=== PATIENT | male | born 1960 | race Caucasian/White ===

== ENCOUNTER 2018-12-05 23:33 | Inpatient (IN) | payer BC ==
[2018-12-06] MEDS ORDERED: HYDROmorphone 0.5 MG/0.5 ML SYRINGE ONE ×3 (00:03→01:56)
[2018-12-06] MEDS ORDERED: Ketorolac Tromethamine 30 MG/ML VIAL ONE (00:03)
[2018-12-06 00:29] LABS: #Basophils 0.2 thou/uL (0.0-0.2); #Lymphocytes 0.5 thou/uL (1.20-3.40); #Monocytes 0.7 thou/uL (0.11-0.59); #Neutrophils 12.1 thou/uL (1.40-6.50); %Basophils 1.3 % (0.0-1.0); %Eosinophils 0.2 % (0.0-10.0); %Lymphocytes 3.9 % (21.0-51.0); %Monocytes 5.4 % (0.0-10.0); %Neutrophils 89.2 % (42.0-75.0); Hemoglobin 14.7 g/dL (14.0-18.0); Mean Corpuscular HGB CONC 34.4 g/dL (32.0-36.0); Mean Corpuscular Hemoglobin 31.3 pg (27.0-31.0); Mean Corpuscular Volume 91.1 fL (78.0-98.0); Mean Platelet Volume 7.5 fL (7.4-10.4); Platelet Count 193 thou/uL (130-400); Red Blood Cell (RBC) Count 4.68 mill/uL (4.70-6.10); White Blood Cell (WBC) Count 13.6 thou/uL (4.8-10.8)
[2018-12-06 00:51] LABS: ALT (SGPT) 769 U/L (8-55); AST (SGOT) 390 U/L (5-34); Albumin 4.1 g/dL (3.5-5.0); Alkaline Phosphatase 213 U/L (40-150); Anion Gap 17 mmol/L (10-20); BUN (Urea Nitrogen) 17 mg/dL (8.4-25.7); Bilirubin, Total 5.8 mg/dL (0.2-1.2); Calc. Creatinine Clearance 0 mL/min (70-130); Calcium 8.8 mg/dL (7.8-10.44); Carbon Dioxide 23 mmol/L (22-29); Chloride 103 mmol/L (98-107); Estimated GFR-MDRD 81; Globulin 2.7 g/dL (2.4-3.5); Glucose 95 mg/dL (70-105); Lipase 27 U/L (8-78); Magnesium 1.8 mg/dL (1.6-2.6); Potassium 3.6 mmol/L (3.5-5.1); Protein, Total 6.8 g/dL (6.0-8.3); Sodium 139 mmol/L (136-145)
[2018-12-06] MEDS ORDERED: Acetaminophen 1,000 MG in Premix Bag 1 BAG IVPB SCH (02:30)
[2018-12-06] MEDS ORDERED: Levalbuterol HCl 1.25 MG/0.5 ML NEB NEB SCH (03:00)
[2018-12-06] MEDS ORDERED: Sodium Chloride For Inhalation 0.9% 3 ML NEB ONE (03:05)
[2018-12-06] MEDS ORDERED: Piperacillin/Tazobactam 3.375 GM VIAL ONE ×2 (03:20→10:27)
[2018-12-06] MEDS ORDERED: Acetaminophen 325 MG TAB PO PRN (03:34)
[2018-12-06] MEDS ORDERED: Ondansetron PF 4 MG/2 ML Vial IVP PRN (03:34)
[2018-12-06] MEDS ORDERED: Fentanyl 100 MCG/2 ML VIAL SLOW IVP PRN (03:34)
[2018-12-06 03:38] LABS: Actual Bicarbonate (HCO3a) 23.6 mEq/L (22-28); Analyzer IN Cardio ER; Base Excess (BEa) -1.9 mEq/L (-2.0 to +3.0); CO2 Tension 42.8 mmHg (35.0-45.0); Calcium, Ionized 1.09 mmol/L (1.12-1.30); Carboxyhemoglobin (COHb) 1.1 gm% (0.0-3.0); Hemoglobin (Hb) 14.3 g/dL (14.0-18.0); O2 Tension (PaO2) 68.2 mmHg (> 80.0); Potassium - ABG Lab 3.34 mmol/L (3.70-5.30); pH, Arterial 7.36 (7.35-7.45)
[2018-12-06 03:39] LABS: Puncture Site LRA
[2018-12-06] MEDS: Sodium Chloride 0.9% 1,000 ML IV SCH (03:43)
[2018-12-06 04:13] LABS: Bilirubin Negative (Negative); Blood, Urine Negative (Negative); Clarity Clear (Clear); Glucose, Urine (Dipstick) Normal (Negative); Leukocyte Negative Leu/uL (Negative); Nitrite Negative (Negative); Protein, Urine (Dipstick) Negative (Neg-Trace); Urobilinogen Normal mg/dL (Less than 2)
[2018-12-06] MEDS ORDERED: Ondansetron PF 4 MG/2 ML Vial ONE ×2 (04:14→09:06)
[2018-12-06] MEDS ORDERED: Morphine 4 MG/ML VIAL ONE ×2 (04:15→06:33)
--- NOTE | 2018-12-06 04:32 | HP ---
REASON FOR ADMISSION: Choledocholithiasis, acute hypoxic respiratory failure secondary to splinting from abdominal pain. HISTORY OF PRESENTING ILLNESS: The patient gives history of developing abdominal pain in the epigastric area while he was watching [employer] game. The pain was 8/ 10 in intensity. There was no radiation of this pain. He has felt very nauseous, but has not thrown up. No complaints of fever, cough, or expectoration. No history of lung issues including asthma, allergies, or COPD. His mentions that he snores, but she has not noticed any apneic spells. PAST MEDICAL AND SURGICAL HISTORY: History of Crohn's from the age of 16 years. Last colonoscopy was 2 years back. He has had colon surgery, but is unable to say exactly how much of his colon is taken out. Prior history of cholecystectomy, hypertension, tonsillectomy, and hernia repair. CURRENT MEDICATIONS: Takes, 1. Humira infusions weekly. 2. Irbesartan 300 mg p.o. daily. 3. Norvasc 2.5 mg daily. 4. Diphenoxylate with atropine twice daily. ALLERGIES: NO KNOWN DRUG ALLERGIES. PERSONAL HISTORY: Does not abuse alcohol or drugs. No history of smoking. Lives with his . FAMILY HISTORY: Both parents are . Mother was 74. She had acute myeloid leukemia. Father at the same age with history of skin cancer and dementia. CODE STATUS: Full. Power of commercial litigation attorney is his . REVIEW OF SYSTEMS: CONSTITUTIONAL: Negative for weight loss or gain, ability to conduct usual activities. SKIN: Negative for rash, itching. EYES: Negative for double vision, pain. ENT/MOUTH: Negative for nose bleeding, neck stiffness, pain, tenderness. CARDIOVASCULAR: Negative for palpitations, dyspnea on exertion, orthopnea. RESPIRATORY: Negative for shortness of breath, wheezing, cough, hemoptysis, fever or night sweats. GASTROINTESTINAL: Negative for poor appetite, abdominal pain, heartburn, nausea , vomiting, constipation, or diarrhea. GENITOURINARY: Negative for urgency, frequency, dysuria, nocturia. MUSCULOSKELETAL: Negative for pain, swelling. NEUROLOGIC/PSYCHIATRIC: Negative for anxiety, depression. ALLERGY/IMMUNOLOGIC: Negative for skin rash, bleeding tendency. PHYSICAL EXAMINATION: GENERAL: The patient is a 58-year-old male who is currently in moderate abdominal pain. VITAL SIGNS: Blood pressure 144/90, pulse 110 per minute, respiratory rate 22 per minute, temperature 98.2 degrees Fahrenheit, saturating 84% on room air and 92% on 35% Ventimask. NECK: Supple. No elevated JVD. HEENT: Eyes; extraocular muscles intact. Pupils are reacting to light. Oral cavity, mucous membranes are dry. No exudates or congestion. CARDIOVASCULAR SYSTEM: S1 and S2 heard, regular rhythm. RESPIRATORY: Air entry 1+ bilateral. The patient is taking shallow breaths. No rales or rhonchi. ABDOMEN: Soft. There is tenderness in the epigastric area. The patient has voluntary guarding, and no obvious rigidity felt. Bowel sounds are heard. EXTREMITIES: No peripheral edema or calf tenderness. VASCULAR SYSTEM: Peripheral pulses 2+ bilateral. No ischemic ulcerations or gangrene. CENTRAL NERVOUS SYSTEM: No gross focal deficits noted. The patient is alert, awake, and oriented well. PSYCHIATRIC SYSTEM: The patient is a bit anxious, otherwise no hallucinations or delusions. LABORATORY DATA: CT angio chest done shows no evidence of PE. CT of the abdomen and pelvis shows distal CBD stone. Official reports are pending at present. Total bilirubin 5.8, AST 390, ALT 769, alkaline phosphatase 213. Troponin I less than 0.01. Albumin is 4.1, lipase is 27, BUN 17, creatinine 0.9, bicarb is 23. Lactic acid 1.6. Blood gas done shows a pH of 7.36, pCO2 of 42, pO2 of 68. White count of 13, H and H 14 and 42, platelet count is 193 with 89% neutrophils, MCV is 91. D-dimer was 0.65. CLINICAL IMPRESSION AND PLAN: The patient will be admitted to IMCU for acute choledocholithiasis with elevated liver enzymes and severe abdominal pain. He also has moderate dehydration. The patient has acute respiratory failure with hypoxia due to splinting from abdominal pain. We will place him on fentanyl 50 mcg IV q.6 hourly p.r.n. Close monitoring of airway will be maintained in IMCU. He will be on normal saline at 100 mL/h. Empiric Zosyn will be placed for now. We will obtain blood cultures. Dr. Galvan has been consulted from ER and the patient will likely go for ERCP this morning. We will keep him n.p.o. We will hold off on all his antihypertensive medications for now. I have given complete updates to patient and his at bedside. Code status is full. Job ID: [id number] MTDD
[2018-12-06] MEDS ORDERED: Fentanyl 100 MCG/2 ML VIAL ONE ×3 (04:33→10:40)
[2018-12-06] MEDS ORDERED: Morphine 2 MG/ML SYRINGE SLOW IVP SCH (06:45)
[2018-12-06] MEDS: Albuterol Sulfate 1.25 MG/3 ML NEB NEB SCH ×3 (07:13→22:13)
--- NOTE | 2018-12-06 08:19 | CT ---
PRELIMINARY REPORT/[facility]/EMERGENCY AFTER HOURS PROCEDURE: EXAM: CT Angiography Chest With Contrast EXAM DATE/TIME: 12/06/2018 1:29 AM CLINICAL HISTORY: 58 years old, male; Shortness of breath; Patient HX: 58 y/o m, with h/o chron's dz, presents to ED C/ O sudden onset of abd pain that began at approx 2200. PT was attending a football game when his pain began. He describes associated dyspnea secondary to pain, with pain worsening on inspiration TECHNIQUE: Imaging protocol: Computed tomographic angiography of the chest with intravenous contrast. 3D renderi ng: MIP reconstructed images were created and reviewed. COMPARISON: No relevant prior studies available. FINDINGS: Pulmonary arteries: No pulmonary emboli. Aorta: Unremarkable. No aortic aneurysm. No aortic dissection. Lungs: Bilateral lower lobe atelectasis and possible small pneumonias. Pleural space: Unremarkable. No pneumothorax. No pleural effusion. Heart: Unremarkable. No cardiomegaly. No pericardial effusion. Liver: 2.1 cm simple cyst within the left hepatic lobe. Lymph nodes: Unremarkable. No enlarged lymph nodes. Bones/joints: Unremarkable. No acute fracture. Soft tissues: Unremarkable. IMPRESSION: 1. No pulmonary emboli. 2. Bilateral lower lobe atelectasis and possible small pneumonias. Thank you for allowing us to participate in the care of your patient. Dictated and Authenticated by: Eddi Riggs MD 12/06/2018 2:23 AM Central Time ([place] & [place]) FINAL REPORT CT ARTERIOGRAM CHEST WITH IV CONTRAST AND 3D IMAGING PERFORMED ON AN EMERGENCY BASIS: Date: 12/06/18 Time: 0131 hours HISTORY: Dyspnea. Chest pain. FINDINGS: Findings agree with the preliminary report by Rupinder. No CT evidence of pulmonary embolus. Bilateral lo wer lobe infiltrates. Possible pneumonia. POS: TPC
--- NOTE | 2018-12-06 08:22 | CT ---
PRELIMINARY REPORT/[facility]/EMERGENCY AFTER HOURS PROCEDURE: EXAM: CT Abdomen and Pelvis With Contrast EXAM DATE/TIME: 12/06/2018 1:29 AM CLINICAL HISTORY: 58 years old, male; Abdominal pain; Patient HX: 58 y/o m, with h/o chron's dz, presents to ED C/O petros den onset of abd pain that began at approx 2200. PT was attending a football game when his pain began . He describes associated dyspnea secondary to pain, with pain worsening on inspiration. TECHNIQUE: Imaging protocol: Computed tomography of the abdomen and pelvis with intravenous contrast. COMPARISON: No relevant prior studies available. FINDINGS: Lungs: Bibasilar atelectasis and possible small lower lobe pneumonias. Liver: 18 mm simple cyst within the left hepatic lobe. Gallbladder and bile ducts: Gallbladder is surgically absent. Mild common bile duct dilation (12 mm), with 6 mm calculus in the distal common bile duct, compatible with choledocholithiasis. Pancreas: Normal. Spleen: Normal. Adrenals: Normal. Kidneys and ureters: Simple right renal cyst. Stomach and bowel: Surgical changes of prior partial right colectomy, without evidence of acute compl ications. Appendix: No evidence of appendicitis. Intraperitoneal space: Normal. No free air. No significant fluid collection. Vasculature: Phleboliths within the pelvis. Lymph nodes: Normal. No enlarged lymph nodes. Bladder: Unremarkable as visualized. Reproductive: Unremarkable as visualized. Bones/joints: No acute abnormality. Soft tissues: Normal. IMPRESSION: 1. Bibasilar atelectasis and possible small lower lobe pneumonias. Recommend followup. 2. Mild common bile duct dilation (12 mm), with 6 mm calculus in the distal common bile duct, compati ble with choledocholithiasis. Degenerative changes of the hips and sacroiliac joints. Thank you for allowing us to participate in the care of your patient. Dictated and Authenticated by: Eddi Riggs MD 12/06/2018 2:19 AM Central Time ([place] & [place]) FINAL REPORT CT ABDOMEN AND PELVIS WITH IV CONTRAST PERFORMED ON AN EMERGENCY BASIS: Date: 12/06/18 Time: 0132 hours HISTORY: Abdominal pain. Crohn's disease. FINDINGS/IMPRESSION: Findings agree with the preliminary report by Rupinder. Bibasilar atelectasis/pneumonitis is again demons trated, better detailed on CTA chest exam. Choledocholithiasis and biliary obstruction are confirmed. POS: TPC
--- NOTE | 2018-12-06 08:26 | RAD ---
ACUTE ABDOMINAL SERIES: INDICATION: Chest pain. FINDINGS: Lungs are hypoinflated with bibasilar densities, accentuation of the cardiac silhouette, and prominen ce of the pulmonary vasculature. No free air is seen beneath the hemidiaphragms. There are scattere d loops of dilated air-filled small bowel as well as differential air fluid levels. Scattered metall ic clips of the abdomen are seen. IMPRESSION: 1. Findings indicate mechanical obstruction on the basis of radiographic imaging. Correlate with CT exam for further evaluation. 2. Hypoinflated lungs with associated basilar densities, accentuation of the cardiac silhouette, and prominence of the pulmonary vasculature. POS: C
[2018-12-06] MEDS ORDERED: Iothalamate Meglumine 60% 50 ML VIAL FS ONE (08:56)
[2018-12-06] MEDS: Fentanyl 100 MCG/2 ML VIAL SLOW IVP PRN (09:00)
[2018-12-06] MEDS ORDERED: Glycopyrrolate 0.2 MG/ML 5 ML SYRINGE ONE (09:06)
[2018-12-06] MEDS ORDERED: PROPOFOL 200 MG/20 ML VIAL ONE (09:06)
[2018-12-06] MEDS ORDERED: Lidocaine 1% PF 5 ML VIAL ONE (09:06)
[2018-12-06] MEDS ORDERED: Dexamethasone 20 MG/5 ML VIAL ONE (09:06)
[2018-12-06] MEDS ORDERED: PHENYLEPHRINE-NS 100 MCG/ML 10 ML SYRINGE ONE (09:06)
[2018-12-06] MEDS ORDERED: Rocuronium Bromide 10 MG/ML (10ML VIAL) ONE (09:06)
[2018-12-06] MEDS ORDERED: Morphine 2 MG/ML SYRINGE ONE (09:23)
[2018-12-06] MEDS ORDERED: Famotidine/PF 20 mg/2ml Vial ONE (09:23)
[2018-12-06] MEDS: Famotidine/PF 20 mg/2ml Vial SLOW IVP SCH ×2 (09:29→21:26)
[2018-12-06] MEDS ORDERED: Indomethacin 50 MG SUPP ONE (10:01)
[2018-12-06] MEDS ORDERED: Sodium Chloride 0.9% 100 ML ONE (10:27)
--- NOTE | 2018-12-06 11:30 | CON ---
DATE OF CONSULTATION: 12/06/2018 REASON FOR CONSULTATION: Choledocholithiasis, right upper quadrant abdominal pain. CONSULTING PROVIDER: Gatito Gonzalez DO HISTORY OF PRESENT ILLNESS: The patient is a 58-year-old male with past medical history of Crohn disease status post multiple small bowel and possible large intestine resections, hypertension, and diarrhea, presenting with complaints of midepigastric/right upper quadrant abdominal pain. He states that approximately 1 week ago, he did have an episode of increased midepigastric pain characterized as a cramping type sensation, but was very self-limiting and resolved within the course of 30 to 60 minutes. However, yesterday, he had a recurrence of this abdominal pain again located in the midepigastric region, characterized as a cramping/aching type sensation, nonradiating and reached a severity of 9/10. The pain did not have any clear exacerbating factors, but did get a little bit better when he raises his arms above his head. This was associated with increased nausea, but no actual vomiting. With the worsening of this abdominal pain, it prompted him to seek healthcare assistance at the [facility] ER, where he had imaging and labs consistent with a possible biliary obstruction. Currently, he denies any vomiting, fevers, chills, hematemesis, melena, hematochezia, dysphagia, odynophagia, or recent weight loss. He does have a history of chronic diarrhea, but this is related to his multiple bowel resections. Of note, the patient is currently on Humira every 2 weeks as part of treatment for his Crohn disease and has been well controlled on this regimen as monotherapy. REVIEW OF SYSTEMS: A 10 category review of systems was obtained with all responses negative, except for the pertinent positives as listed in the HPI. PAST MEDICAL HISTORY: As per HPI. PAST SURGICAL HISTORY: Multiple small bowel and possible colonic resections with an indeterminate amount of length of both resected, cholecystectomy, tonsillectomy, and hernia repair. FAMILY HISTORY: Denies any GI malignancies. SOCIAL HISTORY: Denies any tobacco, alcohol, or illicit drug use. OUTPATIENT MEDICATIONS: Humira, irbesartan, Norvasc, and diphenoxylate/atropine. ALLERGIES: NO KNOWN DRUG ALLERGIES. PHYSICAL EXAMINATION: VITAL SIGNS: Pulse 91, respiratory rate 24, saturating 95% on Ventimask. GENERAL: The patient was lying in bed, in no acute distress. Alert and oriented x4. NECK: Supple. No JVD or scleral icterus noted. HEENT: Normocephalic, atraumatic. The patient is currently respirating with Ventimask. CARDIOVASCULAR: Tachycardic rate, but no discernible murmurs, gallops, or rubs. Regular rhythm. RESPIRATORY: Clear to auscultation bilaterally with diminished breath sounds in the right lower lobe. Currently tachypneic. ABDOMEN: Hypoactive bowel sounds. Soft, nondistended. Tenderness to palpation in the periumbilical and right flank. EXTREMITIES: No cyanosis, clubbing, or edema. LABORATORY DATA: CBC with white blood cell count of 13.6, hemoglobin 14.7, hematocrit 42.6, platelets 193. Chemistry with a sodium of 139, potassium 3.6, chloride 103, CO2 of 23, BUN 17, creatinine 0.95, glucose 95, AST 390, ALT 769, alkaline phosphatase 213, total bilirubin 5.8. IMAGING DATA: CT of the abdomen and pelvis was obtained on December 05, 2018, which showed an 18 mm simple cyst within the left hepatic lobe with the gallbladder surgically absent. However, the common bile duct was dilated to approximately 12 mm in size with a 6 mm calculus seen in the distal common bile duct compatible with choledocholithiasis. Surgical changes consistent with a partial right colectomy were also seen. ASSESSMENT AND PLAN: The patient is a 58-year-old male with past medical history of Crohn disease, status post multiple bowel resections, hypertension, and chronic diarrhea presenting with choledocholithiasis. Choledocholithiasis. The patient is presenting with relatively acute onset of midepigastric/right upper quadrant abdominal pain characterized as an aching, cramping type sensation that has been present for less than 24 hours. On evaluation here at the [facility] ER, he was noted to have significantly elevated transaminases, elevated bilirubin as well as imaging consistent with choledocholithiasis with a calcified stone within the distal common bile duct. He also does exhibit tachypnea, tachycardia, and what looks like to be a right-sided pleural effusion concerning for possible sepsis type picture. With these findings, ascending cholangitis is possible and the patient would benefit from emergent ERCP. RECOMMENDATIONS: 1. I agree with placing the patient on broader spectrum antibiotics including Zosyn for a possible ascending cholangitis. 2. Continue n.p.o. status in preparation for ERCP. 3. We will perform emergent ERCP later this morning with probable sphincterotomy and stone extraction. Given the patient's tachypnea, he will likely need an ICU bed in the postoperative period. 4. Pain control per primary team. 5. Continue with IV fluids as you are doing. We will continue to follow. Please call with any questions. Job ID: [id number]
--- NOTE | 2018-12-06 13:18 | RAD ---
ERCP: 12/06/2018 COMPARISON: None HISTORY: Abdominal pain, choledocholithiasis FINDINGS: 4 images from an ERCP demonstrate contrast media within the common bile duct. No discrete f illing defect is apparent on the provided imaging. A common bile duct stent is seen on the final image. IMPRESSION: ERCP as detailed above.
[2018-12-06 18:00] VITALS: BMI 23.6
--- NOTE | 2018-12-06 19:57 | OP ---
DATE OF PROCEDURE: 12/06/2018 INDICATIONS FOR PROCEDURE: Choledocholithiasis, ascending cholangitis. PROCEDURE: Endoscopic retrograde cholangiopancreatography with sphincterotomy and removal of biliary calculi. DESCRIPTION OF PROCEDURE: After the risks and benefits of the procedure were explained to the patient, including risks of bleeding, infection, perforation, reactions to anesthesia, aspiration, post ERCP pancreatitis, and/or pain, informed consent was obtained. The patient was then taken to the endoscopy suite, where general anesthesia was administered with endotracheal tube intubation via Anesthesia support. Once the patient was intubated and sedated, the patient was maneuvered into the prone position in preparation for the ERCP. Once in position, the standard duodenoscope was introduced into the mouth with intubation of the esophagus, stomach, and the proximal small intestines with the findings listed below. Upon completion of EGD portion of the examination, the ERCP portion was started. Upon identifying the ampulla within the second portion of the duodenum, it was easily identified and normal in appearance. The ampulla was then easily cannulated using a 5 mm sphincterotome with cholangiogram initially showing no filling defect within the common bile duct or extrahepatic biliary tree. Given the imaging findings consistent with a 6 mm stone, a generous sphincterotomy was then performed with good hemostasis throughout the maneuver. During the course of the sphincterotomy, white purulent material was seen emanating from the ampulla itself along with white stone debris. Once the sphincterotomy was completed, a biliary balloon was then advanced into the biliary tree using exchange technique over guidewire. Using successive balloon sweeps, a larger amount of white purulent material in addition to white stone debris (no greater than 1 mm in size) was able to be extracted from the extrahepatic biliary tree. An occlusion cholangiogram was then performed with a filling defect noted within the cystic duct stump. The guidewire was then redirected into the cystic duct stump with the balloon redirected superior to the stone. Using successive balloon sweeps with a 9 mm balloon, it was unable to be successfully extracted via the balloon alone. The balloon was then exchanged for a 2.5 cm stone basket/track leader. However, given significant angulation of the distal common bile duct, was unable to adequately wrap itself around the stone to enable crushing. A 3 cm basket was also employed again with no additional success. Given the inability to extract the stone from the cystic duct stump which appeared to be exerting a Mirizzi-type effect, a 7 cm 10-Mosotho biliary stent was placed with some difficulty with the placement given the strict angulation of a portion of the distal common bile duct. At the end of the procedure, good drainage was noted from the extrahepatic biliary tree with valdez bile coming through the stent itself, at which point, all equipment was removed from the patient and the patient was transferred to PACU in satisfactory condition. FINDINGS: EGD findings: Limiting visualization of the upper GI mucosa was seen during the EGD portion of this examination. Of the mucosa seen, normal-appearing mucosa was seen within the proximal, mid, and distal esophagus. Mild increased mucosal erythema was seen within the distal gastric body and into the antrum, but did not exhibit any erosions, ulcerations, mass lesions, or active/recent bleeding. Visualization of both the duodenal bulb and the second portion of the duodenum were normal. ERCP findings: The ampulla was easily identified within the second portion of the duodenum and easily cannulated with a 5 mm sphincterotome. A guidewire was then placed within the intrahepatic biliary tree with a cholangiogram initially showing no filling defects within the common hepatic or common bile duct. Successive balloon sweeps after sphincterotomy performed yielded a moderate amount of purulent fluid in addition to small white stone debris measuring no greater than 1 mm in size. Occlusion cholangiogram identified a filling defect within the distal cystic duct stump that seem to be exerting a Mirizzi-type effect on the common bile duct. Attempts to remove the stone via biliary balloon were unsuccessful. Attempts to remove the stone via a basket were also unsuccessful. A 7 cm 10-Mosotho biliary stent was then placed with good drainage of the extrahepatic biliary tree at the end of the procedure. IMPRESSION: Choledocholithiasis with evidence of ascending cholangitis, but inability to extract a 6 to 7 mm stone embedded in the distal cystic duct stump. RECOMMENDATIONS: 1. Would admit the patient to hospital in an intermediate care bed for continued monitoring. 2. Would continue antibiotics including Zosyn. 3. Would recommend contacting the transfer center for transferring the patient to a tertiary care center with possible [employer] capabilities to help break the stone apart. 4. Would continue n.p.o. status until transferred. 5. Continue to monitor patient clinically for signs of sepsis and continuing to trend LFTs. We will continue to follow. Please call with any questions. Job ID: [id number]
[2018-12-06] MEDS: Piperacillin/Tazobactam 3.375 GM in Sodium Chloride 0.9% 100 ML IVPB SCH (21:26)
[2018-12-07] MEDS: Sodium Chloride 0.9% 1,000 ML IV SCH ×4 (02:38→23:26)
[2018-12-07 05:08] LABS: #Lymphocytes 0.4 thou/uL (1.20-3.40); #Monocytes 0.9 thou/uL (0.11-0.59); #Neutrophils 10.8 thou/uL (1.40-6.50); %Basophils 0.1 % (0.0-1.0); %Eosinophils 0.1 % (0.0-10.0); %Lymphocytes 3.1 % (21.0-51.0); %Monocytes 7.3 % (0.0-10.0); %Neutrophils 89.4 % (42.0-75.0); Hemoglobin 12.9 g/dL (14.0-18.0); Mean Corpuscular HGB CONC 32.4 g/dL (32.0-36.0); Mean Corpuscular Hemoglobin 30.6 pg (27.0-31.0); Mean Corpuscular Volume 94.4 fL (78.0-98.0); Mean Platelet Volume 8.5 fL (7.4-10.4); Platelet Count 138 thou/uL (130-400); RBC Distribution Width 13.2 % (11.5-14.5); Red Blood Cell (RBC) Count 4.21 mill/uL (4.70-6.10); White Blood Cell (WBC) Count 12.1 thou/uL (4.8-10.8)
[2018-12-07 05:29] LABS: ALT (SGPT) 425 U/L (8-55); AST (SGOT) 106 U/L (5-34); Albumin 3.3 g/dL (3.5-5.0); Alkaline Phosphatase 159 U/L (40-150); Anion Gap 12 mmol/L (10-20); BUN (Urea Nitrogen) 15 mg/dL (8.4-25.7); Bilirubin, Total 6.6 mg/dL (0.2-1.2); Calc. Creatinine Clearance 88 mL/min (70-130); Calcium 7.7 mg/dL (7.8-10.44); Carbon Dioxide 25 mmol/L (22-29); Chloride 107 mmol/L (98-107); Estimated GFR-MDRD 81; Globulin 2.4 g/dL (2.4-3.5); Glucose 110 mg/dL (70-105); Potassium 4.2 mmol/L (3.5-5.1); Protein, Total 5.7 g/dL (6.0-8.3); Sodium 140 mmol/L (136-145)
[2018-12-07] MEDS: Albuterol Sulfate 1.25 MG/3 ML NEB NEB SCH ×3 (06:38→22:03)
[2018-12-07] MEDS: Fentanyl 100 MCG/2 ML VIAL SLOW IVP PRN ×3 (07:40→21:14)
[2018-12-07] MEDS: Famotidine/PF 20 mg/2ml Vial SLOW IVP SCH ×2 (07:41→21:15)
--- NOTE | 2018-12-07 08:12 | PDOC.HOSPP ---
- Subjective Encounter Date: 12/07/18 Encounter Time: 08:00 Subjective: f/u for choledocholithiasis and ascending cholangitis s/p ERCP with sphincterotomy and stent placement but unsuccessful stone extraction. Feels better overall and LFT's improved. - Objective Vital Signs & Weight: Vital Signs (12 hours) Temp Pulse Resp Pulse Ox 12/07/18 07:51 97 12/07/18 07:05 98.7 F 12/07/18 06:38 64 10 L 99 12/07/18 03:47 98.4 F 12/06/18 23:49 98.0 F 12/06/18 22:13 78 12 95 Weight Weight 165 lb Most Recent Monitor Data Heart Rate from ECG 83 NIBP 128/79 NIBP BP-Mean 95 Respiration from ECG 11 SpO2 91 I&O: 12/06/18 12/07/18 12/08/18 06:59 06:59 06:59 Output Total 1370 Balance -1370 Result Diagrams: 12/08/18 07:15 12/08/18 07:15 Additional Labs: Laboratory Tests 12/06/18 12/06/18 12/07/18 00:20 00:20 04:32 WBC 13.6 H Hgb 14.7 Neutrophils % 89.2 H Magnesium 1.8 Total Bilirubin 5.8 H 6.6 H AST 390 H 106 H ALT 769 H 425 H Alkaline Phosphatase 213 H 159 H Lipase 27 12/07/18 04:32 WBC Hgb Neutrophils % 89.4 H Magnesium Total Bilirubin AST ALT Alkaline Phosphatase Lipase Radiology Reviewed by me: Yes (CT abd/pel - CBD 1.2cm, 6mm distal CBD stone) EKG Reviewed by me: Yes (Tele - SR) Hospitalist ROS - Medication Medications: Active Medications Generic Name Dose Route Start Last Admin Trade Name Freq PRN Reason Stop Dose Admin Albuterol Sulfate 1.25 mg 12/06/18 07:00 12/07/18 06:38 Albuterol Sulfate NEB 1.25 mg [id number] ISABEL Administration Famotidine 20 mg 12/06/18 09:00 12/07/18 07:41 Pepcid SLOW IVP 20 mg Q12HR ISABEL Administration Fentanyl 50 mcg 12/06/18 08:43 12/07/18 07:40 Sublimaze SLOW IVP 50 mcg Q4H PRN Administration Severe Pain (7-10) Sodium Chloride 1,000 mls @ 100 mls/hr 12/06/18 03:34 12/07/18 02:38 Normal Saline 0.9% IV 1,000 mls .Q10H ISABEL Administration Ondansetron HCl 4 mg 12/06/18 03:34 12/06/18 04:57 Zofran IVP 4 mg Q6H PRN Administration Nausea/Vomiting - Exam General Appearance: NAD, awake alert Eye: PERRL, anicteric sclera ENT: normocephalic atraumatic, no oropharyngeal lesions Neck: supple, symmetric, no JVD, no thyromegaly, no lymphadenopathy Heart: RRR, no murmur, no gallops, no rubs, normal peripheral pulses Respiratory: CTAB, no wheezes, no rales, no ronchi Gastrointestinal: soft, non-tender, non-distended, normal bowel sounds, no palpable masses Extremities: no cyanosis, no clubbing, no edema Skin: normal turgor, no lesions Neurological: CN's grossly intact, no focal deficits, no new deficit Musculoskeletal: normal tone, normal strength, no muscle wasting Psychiatric: normal affect, normal behavior, A&O x 3 Hosp A/P (1) Choledocholithiasis with obstruction Code(s): K80.51 - CALCULUS OF BILE DUCT W/O CHOLANGITIS OR CHOLECYST W OBST Status: Acute Qualifiers: Cholangitis presence: with cholangitis Cholangitis acuity: acute Qualified Code(s): K80.33 - Calculus of bile duct with acute cholangitis with obstruction Plan: s/p ERCP with sphincterotomy and stent placement but unsuccessful stone extraction, continue close monitoring, may need additional evaluation if clinically decompensating (2) Ascending cholangitis Code(s): K83.09 - OTHER CHOLANGITIS Status: Acute Plan: Secondary to #1, continue Zosyn IV, pain control, serial monitoring (3) Abdominal pain Code(s): R10.9 - UNSPECIFIED ABDOMINAL PAIN Status: Acute Qualifiers: Abdominal location: epigastric Qualified Code(s): R10.13 - Epigastric pain Plan: Improved after tx as outlined above, pain control as clinically indicated (4) Transaminitis Code(s): R74.0 - NONSPEC ELEV OF LEVELS OF TRANSAMNS & LACTIC ACID DEHYDRGNSE Status: Acute Plan: Improved after stent placement, serial LFT's - Plan continue antibiotics, 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
[2018-12-07] MEDS: Piperacillin/Tazobactam 3.375 GM in Sodium Chloride 0.9% 100 ML IVPB SCH ×4 (08:40→23:26)
[2018-12-07] MEDS ORDERED: Amlodipine 5 MG TAB PO SCH (18:00)
--- NOTE | 2018-12-07 18:00 | PRG ---
DATE OF SERVICE: 12/07/2018 REASON FOR CONSULTATION: Choledocholithiasis, right upper quadrant abdominal pain. SUBJECTIVE: The patient states that he has mild right upper quadrant/midepigastric abdominal pain today in addition to a bit of a sore throat in the post ERCP period. However, when compared to the pain he was experiencing prior to admission, this has significantly improved. He has not had a bowel movement since the ERCP yesterday. Otherwise, he denies any nausea, vomiting, fevers, chills, hematemesis, melena, or hematochezia. OBJECTIVE: VITAL SIGNS: Temperature 99.5, pulse 92, blood pressure 138/91, respiratory rate 19, and saturating 92% on room air. GENERAL: The patient was sitting at bedside, in no acute distress. Alert and oriented x4. CARDIOVASCULAR: Regular rate and rhythm with no discernible murmurs, gallops, or rubs. RESPIRATORY: Clear to auscultation bilaterally. ABDOMEN: Normoactive bowel sounds. Soft and nondistended. Tenderness to palpation in the midepigastric and right upper quadrant. EXTREMITIES: No cyanosis, clubbing, or edema. LABORATORY DATA: CBC with a white blood cell count of 12.1, hemoglobin 12.9, hematocrit 39.7, and platelets 138. Chemistry with a sodium of 140, potassium 4.2, chloride 107, CO2 of 25, BUN 15, creatinine 0.95, glucose 110. AST 106, ALT 425, alkaline phosphatase 159, total bilirubin 6.6. IMAGING DATA: The patient underwent ERCP on December 06, 2018 with the findings of purulent material as well as white stone debris that was extracted from the common bile duct. However, a 5 to 6 mm filling defect was also seen within the cystic duct stump consistent with choledocholithiasis. This was unable to be extracted despite multiple attempts at balloon extraction and crushing it in a basket. A biliary stent was then placed to facilitate bile flow from the common bile duct. ASSESSMENT AND PLAN: The patient is a 58-year-old male with past medical history of Crohn disease, status post multiple bowel resections, hypertension, and chronic diarrhea presenting with choledocholithiasis and ascending cholangitis. Choledocholithiasis. The patient initially presented with acute onset of midepigastric/right upper quadrant abdominal pain with imaging consistent with choledocholithiasis. On ERCP, he had a moderate amount of purulent material that was retrieved from the common bile duct in addition to a 5 to 6 mm stone impacted in the cystic duct stump. However, multiple attempts to retrieve the stone were unsuccessful and it seemed to be exhibiting a possible Mirizzi-type effect on the common bile duct itself. A stent was then placed in the common bile duct to facilitate passage of biliary flow. Today, the patient does have some pain, but it could be secondary to instrumentation yesterday versus possible continue biliary obstruction with the elevated total bilirubin of 6.6. It is concerning for this process, but given that his other transaminases have significantly decreased, it is more likely related to instrumentation. RECOMMENDATIONS: 1. We would continue Zosyn for antibiotic coverage for ascending cholangitis. 2. We would advance the patient's diet as tolerated. 3. We would continue to trend LFTs daily and if total bilirubin is downtrending, could potentially discharge to home with followup with outpatient GI physician. 4. Pain control per primary team. We will continue to follow. Please call with any questions. Job ID: [id number]
--- NOTE | 2018-12-08 00:59 | CON ---
DATE OF CONSULTATION: HISTORY OF PRESENT ILLNESS: Jourdan Chapa is a 58-year-old gentleman who lives closer to [place]. He came down for an [place] game and developed abdominal discomfort, and subsequently he was admitted. He underwent an ERCP. He has an impacted stone. The gastroenterology is planning on referring him to his materials handler in [place] to deal with this. His pain has improved significantly. He says he feels much better. PAST MEDICAL HISTORY: Remarkable for: 1. Crohn. 2. History of cholecystectomy. 3. History of partial colectomy. 4. History of hypertension. 5. History of herniorrhaphy. MEDICATIONS: Prior to admission, he was on: 1. Humira. 2. Irbesartan. 3. Norvasc. 4. Lomotil. SOCIAL HISTORY: He is nonsmoker and nondrinker. He has no drug use. Parents are passed. FAMILY HISTORY: There is family history of cancer. REVIEW OF SYSTEMS: Otherwise negative. He denies shortness of breath. I was consulted for pneumonia. PHYSICAL EXAMINATION: VITAL SIGNS: Afebrile. Heart rate is 92, blood pressure 130/91, respiratory rate is 19, oximetry is 92. HEAD AND NECK: Unremarkable. LUNGS: Clear. HEART: Regular rhythm. S1 and S2 are normal. ABDOMEN: Soft and minimally tender in his right upper quadrant. EXTREMITIES: Without clubbing, cyanosis, or edema. NEURO: Nonfocal. LABORATORY DATA: White count 12.1, hemoglobin 12.9, platelets 138. Electrolytes are normal. Bilirubin gone up from 5.8 to 6.6, AST went down from 390 to 106, ALT went down from 769 to 425, alkaline phosphatase went down from 213 to 159. He has undergone ERCP, sphincterotomy, and removal of calculi. He clearly clinically had cholangitis reviewing materials handler's notes. He still has a stone in his distal cystic duct stump. I reviewed his CT of his chest. He has bibasilar atelectatic changes. IMPRESSION: Cholangitis with an impacted stone. His splinting most likely accounts for his chest x-ray and chest CT abnormalities. I doubt he has pneumonia. Either way, he remains on antimicrobial therapy. Apparently, no blood cultures were done on admission. He is stable for transfer at any time. A copy of his chest CT, abdomen and pelvis CT should be given to him on a disc prior to discharge. Job ID: [id number]
[2018-12-08] MEDS ORDERED: traMADol HCl 50 MG TAB PO PRN (01:16)
[2018-12-08] MEDS: Fentanyl 100 MCG/2 ML VIAL SLOW IVP PRN ×4 (01:25→19:34)
[2018-12-08] MEDS: Piperacillin/Tazobactam 3.375 GM in Sodium Chloride 0.9% 100 ML IVPB SCH ×4 (05:46→23:50)
[2018-12-08] MEDS: Albuterol Sulfate 1.25 MG/3 ML NEB NEB SCH ×2 (06:59→14:39)
[2018-12-08 07:24] LABS: #Basophils 0.1 thou/uL (0.0-0.2); #Eosinphils 0.1 thou/uL (0.0-0.7); #Lymphocytes 0.4 thou/uL (1.20-3.40); #Monocytes 0.8 thou/uL (0.11-0.59); #Neutrophils 5.9 thou/uL (1.40-6.50); %Basophils 1.1 % (0.0-1.0); %Lymphocytes 5.1 % (21.0-51.0); %Monocytes 10.3 % (0.0-10.0); %Neutrophils 81.4 % (42.0-75.0); Hemoglobin 12.7 g/dL (14.0-18.0); Mean Corpuscular HGB CONC 33.4 g/dL (32.0-36.0); Mean Corpuscular Hemoglobin 31.5 pg (27.0-31.0); Mean Corpuscular Volume 94.4 fL (78.0-98.0); Mean Platelet Volume 8.3 fL (7.4-10.4); Platelet Count 144 thou/uL (130-400); RBC Distribution Width 13.2 % (11.5-14.5); Red Blood Cell (RBC) Count 4.02 mill/uL (4.70-6.10); White Blood Cell (WBC) Count 7.3 thou/uL (4.8-10.8)
[2018-12-08 07:51] LABS: ALT (SGPT) 362 U/L (8-55); AST (SGOT) 117 U/L (5-34); Albumin 3.3 g/dL (3.5-5.0); Alkaline Phosphatase 188 U/L (40-150); Anion Gap 13 mmol/L (10-20); BUN (Urea Nitrogen) 11 mg/dL (8.4-25.7); Calc. Creatinine Clearance 115 mL/min (70-130); Calcium 8.5 mg/dL (7.8-10.44); Carbon Dioxide 21 mmol/L (22-29); Chloride 107 mmol/L (98-107); Estimated GFR-MDRD Greater than 90; Globulin 2.7 g/dL (2.4-3.5); Glucose 96 mg/dL (70-105); Lipase 390 U/L (8-78); Potassium 3.8 mmol/L (3.5-5.1); Sodium 137 mmol/L (136-145)
[2018-12-08] MEDS: Famotidine/PF 20 mg/2ml Vial SLOW IVP SCH ×2 (10:05→20:22)
[2018-12-08] MEDS: Losartan 25 MG TAB PO SCH (10:05)
[2018-12-08] MEDS: Amlodipine 5 MG TAB PO SCH (10:05)
--- NOTE | 2018-12-08 10:36 | CT ---
EXAM: Abdomen and pelvic CT scan with contrast: HISTORY: Possible stent migration, right-sided abdominal pain since stent placed on 12/06/2018 COMPARISON: CT, 12/06/2018, ERCP, 12/06/2018 FINDINGS: Minimal bilateral pleural effusion/reaction with bibasilar pleural-based parenchymal changes evidence for partial atelectasis. Liver: Status post cholecystectomy without significant intrahepatic ductal dilatation. Small stable l eft lobe liver cyst. Heterogeneity of attenuation evidence for some fatty change. Gallbladder:Status post cholecystectomy. The previously placed biliary stent has migrated to be almost entirely within the duodenum with the t ip just at the level of the ampulla. Persistent distal common bile duct calculus. Development of periduodenal fluid and fat stranding without evidence for air, raising concern for baldev ction to acute duodenitis. I favor this not to represent rafael perforation given the lack of air. Pancreas:Unremarkable Spleen:Unremarkable. Adrenal glands:Unremarkable. Kidneys:No renal calculus or acute obstruction.No solid or cystic mass. No evidence of bowel obstruction. Fairly extensive bowel post surgical change. Bilateral fatty inguinal canals. No CT evidence for acute appendicitis. The urinary bladder is unremarkable. No abscess, adenopathy, or abnormal fluid collection within the abdomen or pelvis. IMPRESSION: Migration of the biliary stent into the duodenum with the tip just at the level of the ampulla. Persistent distal common duct calculus. Developing periduodenal edema and fluid and fat stranding, possibly related to acute duodenitis witho ut evidence for extra luminal gas that would suggest a perforation.
[2018-12-08] MEDS ORDERED: Iopamidol 370 76% 50 ML VIAL FS ONE (13:00)
[2018-12-08] MEDS ORDERED: ISOVUE-370 76%-LOCM 1 ML ONE (13:00)
--- NOTE | 2018-12-08 13:04 | PDOC.HOSPP ---
- Subjective Encounter Date: 12/08/18 Encounter Time: 13:00 Subjective: f/u for cholangitis, choledocholithiasis and now pancreatitis s/p CBD stent placement. NPO currently on Zosyn and IVF's. - Objective Vital Signs & Weight: Vital Signs (12 hours) Temp Pulse Pulse Ox 12/08/18 10:34 97.1 F L 12/08/18 10:05 64 12/08/18 07:45 96 12/08/18 07:00 98.5 F 12/08/18 03:12 98.4 F Weight Weight 184 lb 8 oz Most Recent Monitor Data Heart Rate from ECG 68 NIBP 153/90 NIBP BP-Mean 111 Respiration from ECG 13 SpO2 94 I&O: 12/07/18 12/08/18 12/09/18 06:59 06:59 06:59 Intake Total 270 Output Total 1370 Balance -1370 270 Result Diagrams: 12/08/18 07:15 12/08/18 07:15 Additional Labs: Laboratory Tests 12/06/18 12/06/18 12/07/18 00:20 00:20 04:32 WBC 13.6 H Hgb 14.7 Neutrophils % 89.2 H Magnesium 1.8 Total Bilirubin 5.8 H 6.6 H AST 390 H 106 H ALT 769 H 425 H Alkaline Phosphatase 213 H 159 H Lipase 27 12/07/18 12/08/18 04:32 07:15 WBC 12.1 H Hgb 12.9 L Neutrophils % 89.4 H Magnesium Total Bilirubin 5.0 H AST 117 H ALT 362 H Alkaline Phosphatase 188 H Lipase 390 H Radiology Reviewed by me: Yes (CT abd/pel - migration of bile duct stent into duodenum with duodenitis) EKG Reviewed by me: Yes (Tele - SR) Hospitalist ROS - Medication Medications: Active Medications Generic Name Dose Route Start Last Admin Trade Name Freq PRN Reason Stop Dose Admin Acetaminophen 650 mg 12/06/18 03:34 12/07/18 15:15 Tylenol PO 650 mg Q4H PRN Administration Headache/Fever/Mild Pain (1-3) Albuterol Sulfate 1.25 mg 12/06/18 07:00 12/08/18 06:59 Albuterol Sulfate NEB Not Given X3AM-VC ISABEL Amlodipine Besylate 2.5 mg 12/08/18 09:00 12/08/18 10:05 Norvasc PO 2.5 mg DAILY ISABEL Administration Famotidine 20 mg 12/06/18 09:00 12/08/18 10:05 Pepcid SLOW IVP 20 mg Q12HR ISABEL Administration Fentanyl 50 mcg 12/06/18 08:43 12/08/18 05:44 Sublimaze SLOW IVP 50 mcg Q4H PRN Administration Severe Pain (7-10) Piperacillin Sod/Tazobactam 100 mls @ 200 mls/hr 12/07/18 12:00 12/08/18 12: 24 Sod 3.375 gm/ Sodium Chloride IVPB 100 mls Q6HR ISABEL Administration Losartan Potassium 100 mg 12/08/18 09:00 12/08/18 10:05 Cozaar PO 100 mg DAILY ISABEL Administration Ondansetron HCl 4 mg 12/06/18 03:34 12/06/18 04:57 Zofran IVP 4 mg Q6H PRN Administration Nausea/Vomiting Tramadol HCl 50 mg 12/08/18 01:16 12/08/18 03:38 Ultram PO 50 mg Q6H PRN Administration Moderate Pain (4-6) - Exam General Appearance: NAD, awake alert Eye: PERRL, anicteric sclera ENT: normocephalic atraumatic, no oropharyngeal lesions Neck: supple, symmetric, no JVD, no thyromegaly Heart: RRR, no murmur, no gallops, no rubs, normal peripheral pulses Respiratory: CTAB, no wheezes, no rales, no ronchi, normal chest expansion Gastrointestinal: soft, normal bowel sounds, no palpable masses Gastrointestinal - other findings: mild TTP in RUQ/mid-epigastric region Extremities: no cyanosis, no clubbing Skin: normal turgor, no lesions Neurological: CN's grossly intact, no focal deficits, no new deficit Musculoskeletal: normal tone, normal strength Psychiatric: normal affect, normal behavior, A&O x 3 Hosp A/P (1) Choledocholithiasis with obstruction Code(s): K80.51 - CALCULUS OF BILE DUCT W/O CHOLANGITIS OR CHOLECYST W OBST Status: Acute Qualifiers: Cholangitis presence: with cholangitis Cholangitis acuity: acute Qualified Code(s): K80.33 - Calculus of bile duct with acute cholangitis with obstruction Plan: Continue NPO, Zosyn, IVF's (2) Ascending cholangitis Code(s): K83.09 - OTHER CHOLANGITIS Status: Acute (3) Acute pancreatitis Code(s): K85.90 - ACUTE PANCREATITIS WITHOUT NECROSIS OR INFECTION, UNSP Status: Acute Plan: Likely due to duodenitis with stent migration, continue conservative mgmt, IVF's , Pain control, NPO and Zosyn (4) Abdominal pain Code(s): R10.9 - UNSPECIFIED ABDOMINAL PAIN Status: Acute Qualifiers: Abdominal location: epigastric Qualified Code(s): R10.13 - Epigastric pain Plan: Improved currently, pain control as clinically indicated (5) Transaminitis Code(s): R74.0 - NONSPEC ELEV OF LEVELS OF TRANSAMNS & LACTIC ACID DEHYDRGNSE Status: Acute Plan: Improved, serial LFT's - Plan continue antibiotics, out of bed/ambulate Stable currently Continue Zosyn IV NPO currently Pain control with Fentanyl, Tramadol OOB/ambulate AM lab: CMP, Lipase
[2018-12-08] MEDS: Sodium Chloride 0.9% 1,000 ML IV SCH ×4 (15:05→21:33)
--- NOTE | 2018-12-08 18:55 | PRG ---
DATE OF SERVICE: 12/08/2018 REASON FOR CONSULTATION: Choledocholithiasis status post ERCP, right upper quadrant abdominal pain. SUBJECTIVE: Overnight, the patient has a significant increase in his right upper quadrant abdominal pain, reminiscent of the pain he experienced prior to admission. This lasted for approximately 4 to 6 hours with improvement with pain medications and the tincture of time. He has since passed gas and had a bowel movement, which was normal and also had reduction in his pain as well. However, given his sudden increase in pain, a CT of the abdomen and pelvis was obtained urgently along with serum lipase, which showed lipase elevated at approximately 390, indicative of possible post ERCP pancreatitis. At the time of the interview, the patient denied any nausea, vomiting, fevers, chills, or GI bleeding, but did have mild right upper quadrant abdominal pain that was currently under control. OBJECTIVE: VITAL SIGNS: Temperature 98.5, pulse 64, blood pressure 140/90, respiratory rate 12, and saturating 96% on 1 L nasal cannula. GENERAL: The patient is lying in bed, in no acute distress. Alert and oriented x4. CARDIOVASCULAR: Regular rate and rhythm. RESPIRATORY: Clear to auscultation bilaterally. ABDOMEN: Normoactive bowel sounds. Soft and nondistended. Tenderness to palpation in the right upper quadrant. EXTREMITIES: No cyanosis, clubbing, or edema. LABORATORY DATA: CBC with a white blood cell count of 7.3, hemoglobin 12.7, hematocrit 38, and platelets 144. Chemistry with a sodium of 137, potassium 3.8, chloride 107, CO2 of 21, BUN 11, creatinine 0.81, glucose 96, lipase 390, AST 117, ALT 362, alkaline phosphatase 188, and total bilirubin 5.0. IMAGING DATA: CT of the abdomen and pelvis was obtained on December 08, 2018, which showed minimal bilateral pleural effusions with bibasilar pleural-based parenchymal changes consistent with partial atelectasis. There was no evidence of significant intrahepatic ductal dilatation with the previously placed biliary stent migrating into the duodenum. There was also seen a persistent distal common bile duct calculus as well as development of periduodenal fluid and fat stranding without evidence of air, raising concern for reaction to acute duodenitis. No evidence of perforation was seen in this area. Fairly extensive surgical change was noted within the bowel. There was no abscess, adenopathy, or abnormal fluid collection within the abdomen or pelvis. ASSESSMENT AND PLAN: The patient is a 58-year-old male with past medical history of Crohn disease, status post multiple bowel resections, hypertension, and chronic diarrhea presenting with choledocholithiasis complicated by ascending cholangitis and now further complicated by post endoscopic retrograde cholangiopancreatography pancreatitis, choledocholithiasis/post endoscopic retrograde cholangiopancreatography pancreatitis. The patient initially presented with acute onset of midepigastric/right upper quadrant abdominal pain with imaging consistent with choledocholithiasis on endoscopic retrograde cholangiopancreatography. Evidence of ascending cholangitis was seen with purulent material extruded from the ampulla itself in addition to a 5 to 6 mm stone impacted in the cystic duct stump. Attempts to retrieve it was unsuccessful with the placement of a stent to bypass this area of possible Mirizzi-type effect. Overnight, though the patient exhibited increased abdominal pain concerning for post endoscopic retrograde cholangiopancreatography pancreatitis versus possible perforation. There was no evidence of perforation on CT scan with migration of the biliary stent into the duodenum as well as evidence of periduodenal inflammation consistent with pancreatitis with an elevated lipase at 390. This seems most consistent with post endoscopic retrograde cholangiopancreatography pancreatitis. His LFTs are currently downtrending lend credence to that while the biliary stent has migrated somewhat distal draining adequately. Recommendations; 1. Would continue Zosyn for antibiotic coverage. 2. Would make the patient n.p.o. in light of post endoscopic retrograde cholangiopancreatography pancreatitis. 3. Would increase the IV fluid administration to 150 mL/h. 4. Would continue to trend LFTs daily. 5. Continue to monitor clinically for resolution of his pancreatitis and advancement of diet, possibly tomorrow. 6. Pain control per primary team. We will continue to follow. Please call with any questions. Job ID: [id number]
[2018-12-09] MEDS: Albuterol Sulfate 1.25 MG/3 ML NEB NEB SCH ×3 (01:00→16:30)
[2018-12-09] MEDS: Fentanyl 100 MCG/2 ML VIAL SLOW IVP PRN (03:17)
[2018-12-09] MEDS: Sodium Chloride 0.9% 1,000 ML IV SCH ×3 (04:52→17:19)
[2018-12-09 05:00] VITALS: BP 150/90
[2018-12-09] MEDS: Piperacillin/Tazobactam 3.375 GM in Sodium Chloride 0.9% 100 ML IVPB SCH ×3 (06:32→17:18)
[2018-12-09] MEDS: Losartan 25 MG TAB PO SCH (09:32)
[2018-12-09] MEDS: Famotidine/PF 20 mg/2ml Vial SLOW IVP SCH (09:32)
[2018-12-09 09:50] LABS: #Basophils 0.1 thou/uL (0.0-0.2); #Eosinphils 0.1 thou/uL (0.0-0.7); #Lymphocytes 0.6 thou/uL (1.20-3.40); #Monocytes 0.7 thou/uL (0.11-0.59); #Neutrophils 4.8 thou/uL (1.40-6.50); %Basophils 2.2 % (0.0-1.0); %Eosinophils 2.1 % (0.0-10.0); %Lymphocytes 9.5 % (21.0-51.0); %Monocytes 11.3 % (0.0-10.0); %Neutrophils 74.8 % (42.0-75.0); Hemoglobin 12.9 g/dL (14.0-18.0); Mean Corpuscular HGB CONC 32.1 g/dL (32.0-36.0); Mean Corpuscular Hemoglobin 30.1 pg (27.0-31.0); Mean Corpuscular Volume 93.7 fL (78.0-98.0); Mean Platelet Volume 8.6 fL (7.4-10.4); Platelet Count 176 thou/uL (130-400); RBC Distribution Width 13.2 % (11.5-14.5); White Blood Cell (WBC) Count 6.4 thou/uL (4.8-10.8)
[2018-12-09] MEDS: Amlodipine 5 MG TAB PO SCH (09:52)
[2018-12-09 10:08] LABS: ALT (SGPT) 300 U/L (8-55); AST (SGOT) 85 U/L (5-34); Albumin 3.5 g/dL (3.5-5.0); Alkaline Phosphatase 233 U/L (40-150); Anion Gap 12 mmol/L (10-20); BUN (Urea Nitrogen) 15 mg/dL (8.4-25.7); Bilirubin, Total 3.6 mg/dL (0.2-1.2); Calc. Creatinine Clearance 99 mL/min (70-130); Calcium 8.8 mg/dL (7.8-10.44); Carbon Dioxide 24 mmol/L (22-29); Chloride 104 mmol/L (98-107); Estimated GFR-MDRD 82; Glucose 84 mg/dL (70-105); Potassium 3.9 mmol/L (3.5-5.1); Protein, Total 6.5 g/dL (6.0-8.3); Sodium 136 mmol/L (136-145)
[2018-12-09 11:08] VITALS: TEMP 98.2
--- NOTE | 2018-12-09 11:44 | PRG ---
DATE OF SERVICE: 12/09/2018 REASON FOR CONSULTATION: Choledocholithiasis, status post ERCP, and right upper quadrant abdominal pain consistent with post ERCP pancreatitis. SUBJECTIVE: The patient stated that he did well yesterday with only minimal twinges of pain throughout the day that would last seconds in duration responding spontaneous resolution. However, per nursing staff, he did require the use of some pain medications to help with this pain. This morning, he states that he is doing very, very well with no stated pain since last night. Currently, he denies any nausea, vomiting, fevers, chills, GI bleeding, abdominal pain, diarrhea, or constipation. OBJECTIVE: VITAL SIGNS: Temperature 98.2, pulse 67, blood pressure 160/92, respiratory rate is 17, saturating 99% on room air. GENERAL: The patient was lying in bed, in no acute distress. Alert and oriented x4. CARDIOVASCULAR: Regular rate and rhythm. RESPIRATORY: Clear to auscultation bilaterally. ABDOMEN: Normoactive bowel sounds. Soft, nontender, and nondistended. EXTREMITIES: No cyanosis, clubbing, or edema. LABORATORY DATA: CBC with a white blood cell count of 6.4, hemoglobin 12.9, hematocrit 40.2, and platelets 176. Chemistry with a sodium of 136, potassium 3.9, chloride 104, CO2 of 24, BUN 15, creatinine 0.94, glucose 84, AST 85, ALT 300, alkaline phosphatase 233, and total bilirubin 3.6. IMAGING DATA: No current GI imaging is available for review. ASSESSMENT AND PLAN: The patient is a 58-year-old male with past medical history of Crohn disease, status post multiple bowel resection, hypertension, and chronic diarrhea, presenting with choledocholithiasis complicated by ascending cholangitis and now further complicated by post endoscopic retrograde cholangiopancreatography pancreatitis. Choledocholithiasis/post endoscopic retrograde cholangiopancreatography pancreatitis. The patient initially presented with midepigastric/right upper quadrant abdominal pain with imaging consistent with choledocholithiasis and underwent an endoscopic retrograde cholangiopancreatography with initially normal findings, but later a 5 to 6 mm impacted stone was seen within the cystic duct stump and possibly exerting a Mirizzi-type effect within the common bile duct with sphincterotomy and balloon extraction, a [id number] amount of purulent material as well as white-colored stone debris was removed from the common bile duct. However, the 5 to 6 mm stone was unable to be retrieved. A biliary stent was then placed for continued further drainage. In the postoperative period, the patient exhibited increased right upper quadrant abdominal pain with an elevated lipase of 390 consistent with post endoscopic retrograde cholangiopancreatography pancreatitis. He was then increased on his IV fluids with n.p.o. status and over the last 24 hours, has had significant reduction in his abdominal pain with no pain exhibited today. Recommendations; 1. We will continue Zosyn until discharge for antibiotic coverage with possible cholangitis. 2. Would advance the patient's diet to clear liquids and if able to tolerate this, would start a low fat diet in anticipation of discharge. If he is able to tolerate both these diets, he could be discharged as early today. 3. Would decrease IV fluid administration to 100 mL/h. 4. Continue to trend LFTs daily while inpatient. 5. Pain control per primary team. We will continue to follow. Please call with any questions. Job ID: [id number]
--- NOTE | 2018-12-09 21:35 | DIS ---
DATE OF ADMISSION: 12/06/2018 DATE OF DISCHARGE: 12/09/2018 DISCHARGE DIAGNOSES: 1. Choledocholithiasis with obstruction. 2. Ascending cholangitis secondary to #1. 3. Acute pancreatitis/duodenitis, improving. 4. Abdominal pain secondary to #1, #2, and #3, improved. 5. Transaminitis, improved. CONSULTATIONS: Dr. Arellano with GI Service. PERTINENT LABORATORY AND X-RAY FINDINGS: Lactic acid level 1.6, magnesium level 1.8. Total bilirubin ranged between 3.6 to 6.6. AST ranged between 85 to 390, ALT ranged between 300 to 769, alkaline phosphatase ranged between 159 to 233. Lipase ranged between 27 to 390. CBC showed a white blood cell count ranging between 6.4 to 13.6, hemoglobin ranged between 12.7 to 14.7. Acute abdominal series dated 12/05/2018, showed mechanical obstruction without evidence of free air. Scattered loops of dilated air-filled small bowel and air-fluid levels noted. CT of the abdomen and pelvis dated 12/05/2018, showed bibasilar atelectasis. Mild common bile duct dilation to 12 mm with 6 mm calculus in the distal common bile duct compatible with choledocholithiasis. CT angiogram of the chest dated 12/05/2018, showed no evidence for pulmonary embolus. Bilateral lower lobe atelectasis. CT of the abdomen and pelvis dated 12/08/2018, showed migration of the biliary stent into the duodenum with tip just at the level of the ampulla. Persistent distal common duct calculus noted. Duodenal wall edema noted. HOSPITAL COURSE: The patient was initially admitted after presenting with persistent and severe mid epigastric abdominal pain after attending a football game. The patient was initially admitted and evaluated with plain radiographs and CT of the abdomen and pelvis. The patient was noted with 6 mm calculus in the distal common bile duct with consultation obtained by the GI Service. The patient underwent endoscopic retrograde cholangiopancreatography with sphincterotomy and attempts at removal of biliary calculi. The attempts were unsuccessful. After multiple attempts, there was inability to remove the calculus; however, the patient did receive a bile duct stent. The patient continued on IV Zosyn and received IV and oral pain medications in addition to IV fluids. The patient was monitored clinically with evidence of transaminitis and abdominal pain postoperatively. The patient did develop increasing abdominal pain postoperatively, necessitating a repeat CT of the abdomen and pelvis showing migration of the biliary stent. The patient exhibited mild pancreatitis, at which point the patient was modified on his oral intake and continued on IV fluids. Serial enzyme monitoring showed overall improving LFTs as well as clinical improvement in abdominal pain with supportive management. The patient was slowly advanced from clear liquids to soft mechanical with eventual regular oral intake by the time of discharge. Overall, the patient did remain clinically stable during the hospital course and ready for discharge on 12/09/2018. I have examined the patient at time of discharge and discussed followup instructions. The patient overall clinically stable, ready for discharge on 12/09/2018. DISCHARGE MEDICATIONS: 1. Amlodipine 2.5 mg p.o. daily. 2. Irbesartan 300 mg p.o. daily. 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 CONDITION ON DISCHARGE: Stable. ACTIVITY: Ad-phani. DIET: Heart healthy, low-fat. CODE STATUS: Full. DISPOSITION: Home on 12/09/2018. TIME SPENT: Total time preparing and coordinating discharge is 32 minutes. Job ID: [id number]
--- NOTE | 2018-12-11 06:27 | PQF ---
[employer] Grades 9 Thru 12 Teacher Crystal Reports Winform ViewerJEFFERZORA,OZZY COHEN [id number] JOVANY- JOSE DANIELUNIVERSITY H[facility] [id number] CLINICAL DOCUMENTATION CLARIFICATION FORM: POST DISCHARGE Addendum to original discharge summary date: ____ Late entry note date: __ DATE: 12-11-2018 ATTN: Ozzy Fonseca Please exercise your independent, professional judgment in responding to the clarification form. Clinical indicators are provided on the bottom of this form for your review Please check appropriate box(es): [ ] Sepsis due to: Choledocholithiasis with obstruction [ ] Severe sepsis with acute organ dysfunction of Acute respiratory failure [ x ] Localized infection without sepsis [ ] Other diagnosis please specify: [ ] Unable to determine In addition, please specify: Present on Admission (POA): [ x ] Yes [ ] No [ ] Unable to determine For continuity of documentation, please document condition throughout progress notes and discharge summary. Thank You. CLINICAL INDICATORS: -H&P 12/06 Dr. López - "hx of developing abdominal pain in the epigastric area" -H&P 12/06 Dr. López - "Pulse 110, respi 22" -H&P 12/06 Dr. López - "the patient has acute respiratory failure with hypoxia" -Consult 12/06 Dr. Arellano - "possible sepsis type picture" RISK FACTORS: -H&P 12/06 Dr. López - 58 years old male -OP Report 12/06 Dr. Arellano - Choledocholithiasis with ascending cholangitis -DS 12/09 Dr. Smith - acute pancreatitis TREATMENTS: -H&P 12/06 Dr. López - CT of abdomen -H&P 12/06 Dr. Lpóez - Blood culture -Consult 12/06 Dr. Arellano IVF -OP Report 12/06 Dr. Arellano - ERCP with dilation -JUN 14 - Zosyn 3.375gm IV (This form is maintained as a part of the permanent medical record) 2014 [email or web address], [employer]. All Rights Reserved Caridad [email or web address] [not provided] MTDD
== END 2018-12-09 18:18 | disposition home or self-care (01) | DRG 444 ==
LOC: ERS 23:33 → ERHOLD 12-06 03:30 → IMCU/EMU 12-06 17:27
PROVIDERS: ADMIT Internal Medicine; ATTEND Internal Medicine
PROC: 0F788DZ Dilation of Cystic Duct with Intraluminal Device, Via Natural or Artificial Opening Endoscopic (ICD-10-PCS; principal; 2018-12-06)
PROC: BF101ZZ Fluoroscopy of Bile Ducts using Low Osmolar Contrast (ICD-10-PCS; 2018-12-06)
DX: K80.31 Calculus of bile duct with cholangitis, unspecified, with obstruction (principal); J96.01 Acute respiratory failure with hypoxia; K85.90 Acute pancreatitis without necrosis or infection, unspecified; K50.90 Crohn's disease, unspecified, without complications; K91.89 Other postprocedural complications and disorders of digestive system; E86.0 Dehydration; K52.9 Noninfective gastroenteritis and colitis, unspecified; I10 Essential (primary) hypertension; K29.80 Duodenitis without bleeding; Z90.49 Acquired absence of other specified parts of digestive tract; Z79.899 Other long term (current) drug therapy
CPT/HCPCS: 36415; 71275; 74022; 74177; 74330; 80053; 81003; 82805; 83605; 83690; 83735; 84484; 85025; 85379; 93005; 93010; 94660; 96361; 96365; 96375; 96376; J0131; J1100; J1170; J1885; J2001; J2270; J2405; J2543; J2704; J3010; J3490; J7612; Q9966; Q9967; S0028